=== PATIENT | female | born 1990 | race Caucasian/White ===

== ENCOUNTER 2018-06-23 07:33 | Day surgery (SDC) | payer MEDICAID ==
[~2018-06-23 07:33] MED LIST: CEFAZOLIN 2 GM/50 ML (PMX) 50 ML IVPB; SOD CHLORIDE 0.9% 1,000 ML IV
[2018-06-23] MEDS ORDERED: MIDAZOLAM 1 MG/ML 2 ML INJ (12:56)
[2018-06-23] MEDS ORDERED: PROPOFOL 20 ML (12:56)
[2018-06-23] MEDS ORDERED: SUCCINYLCHOLINE CHLORIDE 100 MG/5 ML SYG IV (12:56)
[2018-06-23] MEDS ORDERED: LIDOCAINE 1% (MDV) 20 ML INJ (12:56)
[2018-06-23] MEDS ORDERED: CEFAZOLIN 1 GM INJ (13:17)
[2018-06-23] MEDS ORDERED: PHENYLephrine (100 MCG/ML) 5ML SYG (13:45)
[2018-06-23] MEDS ORDERED: ONDANSETRON 4 MG INJ (13:52)
[2018-06-23] MEDS ORDERED: ACETAMINOPHEN 1000MG/100ML IV 100 ML (14:21)
[2018-06-23] MEDS ORDERED: HYDROCODONE/APAP (7.5/325) TAB PO (14:30)
[2018-06-23] MEDS ORDERED: ONDANSETRON 4 MG INJ IV (14:30)
[2018-06-23] MEDS: ACETAMINOPHEN 1000MG/100ML IV 100 ML IVPB (14:33)
== END 2018-06-23 16:20 | disposition home or self-care (01) ==
LOC: SDS 07:33
DX: D24.1 Benign neoplasm of right breast (principal)
CPT/HCPCS: 19301; 88307